=== PATIENT | female | born 2000 | race Caucasian/White ===

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

== ENCOUNTER 2020-08-10 18:50 | Emergency (ER) | payer MEDICAID ==
[~2020-08-10] VITALS: Ht 165.1 cm; Wt 90.9 kg
[~2020-08-10 18:50] MED LIST: ZOFRAN ODT4 MG/UDTAB PO
[2020-08-10 19:04] VITALS: Ht 165.1 cm; Wt 90.9 kg
== END 2020-08-10 21:06 | disposition home or self-care (01) ==
LOC: D.ER 18:50
DX: S61.213A Laceration without foreign body of left middle finger without damage to nail, initial encounter (principal); W45.8XXA Other foreign body or object entering through skin, initial encounter; Y93.9 Activity, unspecified; Y92.9 Unspecified place or not applicable